=== PATIENT | female | born 1975 | race Caucasian/White ===

== ENCOUNTER 2018-01-28 10:00 | Emergency (ER) | payer OTHER ==
[~2018-01-28] VITALS: Ht 152.4 cm; Wt 79.4 kg
[~2018-01-28 10:00] MED LIST: BACTRIM DS TAB1 EACH PO; DOXYCYCLINE 10100 MG PO; NOHOMEMEDICATIONS; NORCO 5-325 TA1 EACH PO; PROVENTIL INH; VICODIN 5-5001 EACH PO; ZOFRAN4 MG PO; ZPAK PO
[2018-01-28 10:34] LABS: ABSOLUTE EOSINOPHILS 0.1 thou/uL (0.0-0.7); ABSOLUTE LYMPHOCYTES 0.8 thou/uL (0.8-5.3); ABSOLUTE MONOCYTES 0.3 thou/uL (0.0-1.2); ABSOLUTE NEUTROPHILS 3.1 thou/uL (1.6-8.1); BASOPHILS 0.8 %; EOSINOPHILS 2.6 %; HEMATOCRIT 42.5 % (37.0-47.0); HEMOGLOBIN 14.1 gm/dL (12.0-15.0); LYMPHOCYTES 18.7 %; MCH 32.7 pg (26.0-34.0); MCHC 33.3 g/dL (28.0-37.0); MCV 98.2 fL (80.0-100.0); MONOCYTES 6.7 %; NUCLEATED RBCS 0 /100WBC; PLATELET COUNT* 243 thou/uL (150-400); POLYS 71.2 %; RBC 4.32 mil/uL (4.20-5.00); RDW-CV 15.3 % (10.5-14.5); WBC 4.3 thou/uL (4.0-11.0)
[2018-01-28 10:39] LABS: CALCIUM 8.6 mg/dL (8.5-10.1); CREATININE 0.7 mg/dL (0.6-1.3); POTASSIUM 3.6 mmol/L (3.5-5.1)
[2018-01-28 10:47] LABS: MONOTEST (MONOSPOT)* NEGATIVE (Negative)
[2018-01-28 11:14] VITALS: BP 176/93
== END 2018-01-28 11:15 | disposition home or self-care (01) ==
LOC: M.ERS 10:00
PROVIDERS: Emergency Medicine Emergency Medical Services
DX: J02.9 Acute pharyngitis, unspecified (principal); R11.2 Nausea with vomiting, unspecified; F41.9 Anxiety disorder, unspecified; F32.9 Major depressive disorder, single episode, unspecified; F17.210 Nicotine dependence, cigarettes, uncomplicated; Z90.49 Acquired absence of other specified parts of digestive tract

== ENCOUNTER 2018-02-25 21:26 | Emergency (ER) | payer OTHER ==
[~2018-02-25] VITALS: Ht 154.9 cm; Wt 68.0 kg
[2018-02-25] MEDS ORDERED: CIPROFLOXIN HC2.5 M1 OPHTHALMIC (22:13)
[2018-02-25 22:19] VITALS: BP 154/92
== END 2018-02-25 22:19 | disposition home or self-care (01) ==
LOC: M.ERS 21:26
DX: H10.9 Unspecified conjunctivitis (principal); F32.9 Major depressive disorder, single episode, unspecified; F41.9 Anxiety disorder, unspecified; F17.210 Nicotine dependence, cigarettes, uncomplicated; Z90.49 Acquired absence of other specified parts of digestive tract; Z98.890 Other specified postprocedural states

== ENCOUNTER 2019-07-24 14:00 | Inpatient (IN) | payer OTHER ==
[~2019-07-24] VITALS: Ht 152.4 cm; Wt 79.4 kg
[~2019-07-24 14:00] MED LIST changes: +CIPROFLOXIN HC2.5 M1 OPHTHALMIC
[2019-07-24 14:15] VITALS: BP 144/90
[2019-07-24 14:53] LABS: ABSOLUTE EOSINOPHILS 0.1 thou/uL (0.0-0.7); ABSOLUTE MONOCYTES 0.5 thou/uL (0.0-1.2); ABSOLUTE NEUTROPHILS 4.2 thou/uL (1.6-8.1); BASOPHILS 0.4 %; EOSINOPHILS 1.6 %; HEMATOCRIT 40.6 % (37.0-47.0); HEMOGLOBIN 13.7 gm/dL (12.0-15.0); LYMPHOCYTES 17.3 %; MCH 32.8 pg (26.0-34.0); MCHC 33.8 g/dL (28.0-37.0); MCV 97.2 fL (80.0-100.0); MONOCYTES 8.6 %; MPV 6.7 fl. (7.2-11.1); NUCLEATED RBCS 0 /100WBC; PLATELET COUNT* 404 thou/uL (150-400); POLYS 72.1 %; RBC 4.17 mil/uL (4.20-5.00); RDW-CV 14.4 % (10.5-14.5); WBC 5.8 thou/uL (4.0-11.0)
[2019-07-24 14:55] LABS: CALCIUM 8.7 mg/dL (8.5-10.1); CREATININE 0.6 mg/dL (0.6-1.3); POTASSIUM 3.8 mmol/L (3.5-5.1)
[2019-07-24 15:56] LABS: ESR (SEDRATE) 23 mm/hr (0-20)
[2019-07-24 17:46] LABS: AMP/METHAMP Negative (Negative); BARBITURATES Negative (Negative); BENZODIAZEPINES Negative (Negative); COCAINE Negative (Negative); METHADONE Negative (Negative); OPIATES Negative (Negative); PCP Negative (Negative); THC POSITIVE (Negative)
[2019-07-24 20:10] VITALS: BP 125/70; BP 145/86
[2019-07-25 00:43] VITALS: BP 124/68
[2019-07-25 05:00] LABS: HEMATOCRIT 35.1 % (37.0-47.0); HEMOGLOBIN 11.9 gm/dL (12.0-15.0); MCH 32.7 pg (26.0-34.0); MCV 96.4 fL (80.0-100.0); MPV 6.7 fl. (7.2-11.1); RBC 3.64 mil/uL (4.20-5.00); RDW-CV 14.1 % (10.5-14.5); WBC 4.7 thou/uL (4.0-11.0)
[2019-07-25 05:12] LABS: ALBUMIN 2.7 g/dL (3.4-5.0); CALCIUM 8.1 mg/dL (8.5-10.1); CREATININE 0.5 mg/dL (0.6-1.3); MAGNESIUM 1.7 mg/dL (1.8-2.4); POTASSIUM 3.8 mmol/L (3.5-5.1)
--- NOTE | 2019-07-25 06:02 | NUR ---
RECEIVED REPORT FROM ER NURSE, SHERMAN. PATIENT BROUGHT TO UNIT AT 2009. ASSESSMENT COMPLETED CHARTED. PATIENT ORIENTED TO UNIT, ROOM, BED, CALL-LIGHT, AND HOSPITAL POLICY. PATIENT IS MED-SURG. FALL PRECAUTIONS IN PLACE FOR PATIENT SAFETY. HOURLY ROUNDING IN PLACE FOR PATIENT SAFETY. CLWR.
[2019-07-25 08:00] VITALS: BP 141/75
--- NOTE | 2019-07-25 11:26 | NUR ---
Nutrition: Pt admitted with FX, Lt leg celluilitis. Wt: 175#. Consult for poor intake. On ABX. Pt is currently NPO. Albumin 2.7. Hopeful for timely advancement of diet and good po intake with meals. May recommend protein supplement when diet advances for wound healing. No nutrition interventions needed today. Will follow for timely diet advancement and supplement. Mild risk. F/u 07/27/19.
--- NOTE | 2019-07-25 11:27 | NUR ---
WOUND NURSE: WITH THE ASSISTANCE OF DR. SOMERS, RESIDENT WITH DR. WOO, REMOVED ENOUGH SPLINT MATERIAL TO EXPOSE THE FRACTUE BLISTER ON THE MEDIAL ANKLE. APPLIED VERSATEL UNDER AQUACEL AG, THEN COTTON CAST PADDING WAS REAPPLIED AND SECURED WITH PIECE OF KERLEX, THEN THE JAYANT WRAPS WERE REPLACED. WOUND PRESENTS SHALLOW LESION, WITH LIGHT ZAFAR TISSUE ALONG WITH THIN BLACKENED ESCHAR COVERING ANTERIOR MOST PART OF THE WOUND BED, NO ACTIVE DRAINAGE IS NOTED. THERE IS SIGNIFICANT REDNESS AND WARMTH AND EDEMA TO THE PERIWOUND AREA NOTED. THIS WAS A ONE TIME DRESSING CHANGE WITH ORTHOPAEDIC DOCTORS TO FOLLOW UP. LLE WAS ELEVATED ON A FOLDED PILLOW FOR COMFORT AND EDEMA CONTROL. DRESSING CHANGE WAS TOLERATED WELL BY THE PATIENT WHO WAS PREMEDICATED BY HER NURSE.
--- NOTE | 2019-07-25 14:51 | NUR ---
Pt is A&O. Resides at home with her son, active and independent. Pt has crutches at home. No hx of HH or SNF. [place] at [place]. Following.
[2019-07-25 18:02] VITALS: BP 144/67
--- NOTE | 2019-07-25 18:39 | NUR ---
ASSESSMENT COMPLETED DOCUMENTED THIS MORNING. DR. ALMARAZ IN AND APPLIED SPLINT TO LEFT ANKLE AFTER 50MCG OF FENTANYL WAS ADMINISTERED. XRAY OBTAINED POST APPLICATION REVEALED LITTLE IMPROVEMENT. 1800 SPLINT WAS REAPPLIED BY DR. ALMARAZ AND DR. ARMAS AFTER 100 MCG OF FENTANYL WAS GIVEN. PATIENT HAS BEEN RESTING QUIETLY DURING THE DAY AND ONLY ASKED FOR PAIN MEDS X2. UP TO BSC WITH ASSISTANCE OF ONE AND WALKER FOR BALANCE. VSS.
[2019-07-25 20:00] VITALS: BP 151/76
[2019-07-25 23:57] VITALS: BP 152/90
[2019-07-26 04:54] LABS: ABSOLUTE EOSINOPHILS 0.1 thou/uL (0.0-0.7); ABSOLUTE LYMPHOCYTES 0.8 thou/uL (0.8-5.3); ABSOLUTE MONOCYTES 0.5 thou/uL (0.0-1.2); ABSOLUTE NEUTROPHILS 2.8 thou/uL (1.6-8.1); EOSINOPHILS 3.3 %; HEMATOCRIT 34.3 % (37.0-47.0); HEMOGLOBIN 11.7 gm/dL (12.0-15.0); MCH 32.9 pg (26.0-34.0); MCHC 34.1 g/dL (28.0-37.0); MCV 96.4 fL (80.0-100.0); MONOCYTES 12.3 %; MPV 6.4 fl. (7.2-11.1); NUCLEATED RBCS 0 /100WBC; PLATELET COUNT* 358 thou/uL (150-400); POLYS 64.4 %; RBC 3.56 mil/uL (4.20-5.00); RDW-CV 14.1 % (10.5-14.5); WBC 4.4 thou/uL (4.0-11.0)
[2019-07-26 05:25] LABS: ALBUMIN 2.8 g/dL (3.4-5.0); CREATININE 0.6 mg/dL (0.6-1.3); POTASSIUM 3.7 mmol/L (3.5-5.1)
--- NOTE | 2019-07-26 07:10 | NUR ---
CHANGE OF SHIFT BEDSIDE REPORT GIVEN PATIENT SEEN AT BEDSIDE, IN BED RESTING ASSUMED PATIENT CARE
--- NOTE | 2019-07-26 07:49 | NUR ---
Shift uneventful. Pt is aox4, M/S status, respirations are even and unlabored on room air. Pt is medically stable at this time.
[2019-07-26 08:00] VITALS: BP 124/51
--- NOTE | 2019-07-26 12:17 | NUR ---
Pt's sister has a wc and walker that Pt can use, no further needs identified. Pt discharging to home today.
[2019-07-26] MEDS ORDERED: ECPIRIN325 MG PO (13:17)
[2019-07-26] MEDS ORDERED: BACTRIM DS TAB1 EAC1 PO (13:19)
[2019-07-26] MEDS ORDERED: NORCO 5-325 TA1 EAC1 PO (13:20)
[2019-07-26 13:22] VITALS: BP 124/51
--- NOTE | 2019-07-26 13:28 | NUR ---
Per [facility], Pt does not qualify for [place] [facility]
--- NOTE | 2019-07-26 15:54 | NUR ---
PATIENT DISCHARGED TO HOME ALL DC INFORMATION GIVEN, ACKNOWLEDGED, PAPERWORK SIGNED IV REMOVED PATIENT ASSISTED OUT VIA WC GOOD CONDITION TO WAITING CAR
== END 2019-07-26 15:35 | disposition home or self-care (01) | DRG 563 ==
LOC: M.ERS 14:00 → M.TBA-ER 15:56 → M.2W 15:56
PROVIDERS: Internal Medicine; Physician Assistant; ADMIT Family Medicine
PROC: 2W3TX1Z Immobilization of Left Foot using Splint (ICD-10-PCS; principal; 2019-07-25)
DX: S82.852A Displaced trimalleolar fracture of left lower leg, initial encounter for closed fracture (principal); L03.116 Cellulitis of left lower limb; F41.9 Anxiety disorder, unspecified; F32.9 Major depressive disorder, single episode, unspecified; D47.3 Essential (hemorrhagic) thrombocythemia; R56.9 Unspecified convulsions; F17.210 Nicotine dependence, cigarettes, uncomplicated; F12.10 Cannabis abuse, uncomplicated; W10.8XXA Fall (on) (from) other stairs and steps, initial encounter; I10 Essential (primary) hypertension; Z83.3 Family history of diabetes mellitus; Z82.49 Family history of ischemic heart disease and other diseases of the circulatory system; Y93.89 Activity, other specified; Y92.89 Other specified places as the place of occurrence of the external cause; Y99.8 Other external cause status

== ENCOUNTER 2019-09-20 19:18 | Inpatient (IN) | payer OTHER ==
[~2019-09-20] VITALS: Ht 152.4 cm; Wt 82.6 kg
--- NOTE | ~2019-09-20 | OP ---
[address] [address] OPERATIVE REPORT Name: YOLA AMADOR Room: [address] IN [facility]#: [id number] Admission: 09/20/19 Attend Phys: Dianne Lewis Discharge: 09/24/19 Date of : 79 Report #: [id number] THIS REPORT FOR: //name// cc: NANI Amaya family physician/PCP NANI - Monique family physician/PCP ~ THIS REPORT FOR: //name// CC: NANI physician/PCP Gabe See DICTATED BY: Vin Bojorquez DO DATE OF SERVICE: 09/23/2019 PREOPERATIVE DIAGNOSIS: Left, closed, displaced trimalleolar ankle fracture, subacute. POSTOPERATIVE DIAGNOSIS: Left, closed, displaced trimalleolar ankle fracture, subacute. PROCEDURE PERFORMED: 1. Open reduction and internal fixation of left trimalleolar ankle fracture, distal fibula with cancellous allograft bone chips. 2. Open reduction and internal fixation of left medial malleolus. 3. Open reduction and internal fixation of left syndesmosis. 4. Physician directed fluoroscopy less than 1 hour. SURGEON: Stacey Barahona DO CLOTH BALE HEADER: Vin Bojorquez DO ANESTHESIA TYPE: General, local and regional nerve block by Anesthesia. ESTIMATED BLOOD LOSS: 10 mL. SPECIMENS REMOVED: None. COMPLICATIONS: None. CONDITION OF PATIENT: Stable. DISPOSITION: PACU, then Med/Surg. ANTIBIOTICS: 2 grams Ancef IV piggyback prior to the procedure. TOURNIQUET TIME: 77 minutes at [address] [place] [address] OPERATIVE REPORT Name: YOLA AMADOR Room: [address] IN [facility].#: [id number] Admission: 09/20/19 Attend Phys: Dianne Lewis Discharge: 09/24/19 Date of : 79 Report #: [id number] ORTHOPEDIC IMPLANTS: Arthrex distal fibular locking plate with appropriately sized screws, 3.5 mm cortical medial malleolar screws x 2 and 3.5 mm syndesmosis screws x 2. INDICATIONS FOR PROCEDURE: The patient is a 44-year-old female who unfortunately approximately 2-1/2 months ago sustained a left trimalleolar ankle fracture. She was initially hesitant to come into the Emergency Department due to the COVID-19 pandemic and had delayed presentation after a week or two from the time of injury. She then presented to the Emergency Department where closed reduction was performed and then she was followed up in Orthopedic Clinic. At that time due to lack of insurance and financial constraints, she was unable to undergo open reduction and internal fixation of her ankle fracture and the patient was then referred to [facility] for further care due to her lack of insurance. Unfortunately, she was unable to follow up with [facility] for this care and she was lost to follow up until she presented again to the Emergency Department with increasing pain earlier this week. At that point, she had repeat x-rays demonstrating a malunion of the ankle fracture with some interval healing as this is now a subacute injury. She underwent repeat closed reduction and was admitted to the hospital until she was stable for surgery today. Prior to surgery, the patient was informed of all the risks, benefits, indications and potential complications of the surgery including but not limited to infection, wound healing complications, neurovascular injury, need for extended antibiotics, implant failure, posttraumatic arthritis, especially in the setting of this being a subacute injury, DVT, PE and other thromboembolic events which she is particularly at risk since she does have a DVT noted in her peroneal vein. Also, a complication associated with anesthesia, need for revision surgery, chronic pain, and other possibilities. She demonstrated good understanding and wanted to proceed with surgery and consent was signed prior to surgery. DESCRIPTION OF PROCEDURE: I met with the patient in the preoperative suite and the correct left leg was marked. The patient was then taken to the operating room and positioned supine on a well-padded table. She was given general anesthetic. She was also given the benefit of a regional nerve block by Anesthesia. The left lower extremity was sterilely prepped and draped in standard fashion using a bone foam and a bump. At this point, a surgical timeout was completed, indicating the correct patient, operative site and procedure to be performed. All in the room were in agreement and we elected to proceed. Marked out both the medial and lateral incisions and the Esmarch was then utilized to exsanguinate the leg and the tourniquet was insufflated. The skin was incised with a 15 blade scalpel and then sharp dissection was taken down to the level of the fascia laterally. At this point, the fascia was incised and then further dissection was carried down to the level of bone. The periosteum was incised in line with the incision and a shahid elevator was used to perform periosteal sleeve dissection. The interval [place] [address] OPERATIVE REPORT Name: YOLA AMADOR Room: [address] IN [place].#: [id number] Admission: 09/20/19 Attend Phys: Dianne Lewis Discharge: 09/24/19 Date of : 79 Report #: [id number] was then removed and the fracture was completely freed until healthy appearing bone was visualized. Same technique was further utilized at the medial side with incising the skin with a 15 blade scalpel, dissection carried down to the level of the bone and periosteum was incised in line with the incision and a shahid elevator was utilized to free the periosteal sleeve both anterior and posterior and the fractured nonunion fibrous tissue was removed until healthy appearing fresh cartilage bone ends were visualized. At this point, proceeded with the reduction of the distal fibula. Multiplanar fluoroscopy was utilized to confirm adequate reduction with appropriate length of the distal fibula. The lateral distal fibular locking plate was positioned and the distal locking screws were drilled in place. Next, using a traction through the plate further length was able to be achieved and there was noted to be quite a bit of a fracture gap still present due to the amount of collapse she had sustained from the subacute injury and delayed time to surgery. In order to achieve adequate length of the distal fibula, we maintained this fracture gap present and the more proximal cortical screws were placed in an eccentric fashion, placing the screws essentially close to the fracture in order to obtain further length. Three cortical screws were then placed in the proximal aspect of the plate. At this point with the fibula well fixed, we then turned our attention to the medial malleolar fracture. This was reduced and 2 K-wires were positioned through the fracture piece engaging the posterior cortex. Multiplanar fluoroscopy was utilized in order to confirm appropriate position and then the appropriately sized cortical screws were able to be measured from these K wires. These were then drilled and the cortical screws were positioned in the standard fashion providing adequate reduction and fixation of the medial malleolus fracture. Next, we turned our attention to the syndesmosis. This was reduced in the standard technique with direct visualization and utilizing manual compression across the syndesmosis with the foot in neutral position. The two syndesmosis screws were drilled and placed with a quadricortical placement. At this point, the wounds were thoroughly irrigated both medially and laterally. Cancellous allograft bone chips were passed on the back table and these were then allowed to soak in saline. They were crushed in order to fill the distal fibula fracture gap that was still present. We were able to adequately impact all of the allograft cancellous chips into this fracture gap. Closure consisted of closing the deep layer with 0 Vicryl in a [id number] fashion. Subcutaneous closure both medially and laterally was performed with a 3-0 Vicryl in an inverted simple fashion. Skin was closed with 3-0 nylon in a running fashion, both medially and laterally. The needle and sponge counts were correct x 2 at the end of procedure. The dressing consisted of Arthrex soft tissue dressing followed by 4 x 4's, ABD, soft roll, posterior splint and Armani wrap. Tourniquet was deflated. The patient was awakened from anesthesia and taken to PACU in stable condition. Dr. Barahona was present throughout the entirety of the case. POSTOPERATIVE COURSE: The patient will [place] [address] OPERATIVE REPORT Name: YOLA AMADOR Room: [address] IN [facility].#: [id number] Admission: 09/20/19 Attend Phys: Dianne Lewis Discharge: 09/24/19 Date of : 79 Report #: [id number] extremity. She will be evaluated by physical therapy to pass gait training. We will initiate Eliquis for further DVT treatment of the peroneal vein DVT, which will be managed by the Internal Medicine colleagues. Follow up in orthopedic clinic in 1 week for reevaluation and wound check. By: [id number] Barahona DO /cristian
[~2019-09-20 19:18] MED LIST changes: +BACTRIM DS TAB1 EAC1 PO; +ECPIRIN325 MG PO; +NORCO 5-325 TA1 EAC1 PO
[2019-09-20 19:28] VITALS: BP 182/79
[2019-09-20 21:28] LABS: ABSOLUTE EOSINOPHILS 0.3 thou/uL (0.0-0.7); ABSOLUTE LYMPHOCYTES 1.4 thou/uL (0.8-5.3); ABSOLUTE MONOCYTES 0.4 thou/uL (0.0-1.2); ABSOLUTE NEUTROPHILS 3.1 thou/uL (1.6-8.1); BASOPHILS 0.6 %; EOSINOPHILS 4.8 %; HEMATOCRIT 41.3 % (37.0-47.0); LYMPHOCYTES 27.2 %; MCH 32.5 pg (26.0-34.0); MCHC 33.8 g/dL (28.0-37.0); MCV 96.1 fL (80.0-100.0); MONOCYTES 8.2 %; MPV 6.8 fl. (7.2-11.1); NUCLEATED RBCS 0 /100WBC; PLATELET COUNT* 314 thou/uL (150-400); POLYS 59.2 %; RDW-CV 15.5 % (10.5-14.5); WBC 5.2 thou/uL (4.0-11.0)
[2019-09-20 21:37] LABS: CALCIUM 8.5 mg/dL (8.5-10.1); CREATININE 0.6 mg/dL (0.6-1.3); POTASSIUM 3.4 mmol/L (3.5-5.1)
[2019-09-20 21:41] LABS: ALBUMIN 3.6 g/dL (3.4-5.0); TOTAL BILIRUBIN 0.4 mg/dL (<0.1-1.0); TOTAL PROTEIN 7.6 g/dL (6.4-8.2)
[2019-09-20 23:31] VITALS: BP 149/72
[2019-09-20 23:45] VITALS: BP 150/83
[2019-09-21 04:00] VITALS: BP 151/78
[2019-09-21 08:11] VITALS: BP 159/97
[2019-09-21 11:07] LABS: APTT 28.1 Seconds (25.0-31.3)
[2019-09-21 11:38] LABS: ABSOLUTE EOSINOPHILS 0.2 thou/uL (0.0-0.7); ABSOLUTE LYMPHOCYTES 1.1 thou/uL (0.8-5.3); ABSOLUTE MONOCYTES 0.4 thou/uL (0.0-1.2); ABSOLUTE NEUTROPHILS 2.2 thou/uL (1.6-8.1); EOSINOPHILS 5.7 %; HEMATOCRIT 39.4 % (37.0-47.0); HEMOGLOBIN 13.2 gm/dL (12.0-15.0); LYMPHOCYTES 28.2 %; MCH 32.3 pg (26.0-34.0); MCHC 33.6 g/dL (28.0-37.0); MCV 96.2 fL (80.0-100.0); MONOCYTES 9.5 %; MPV 7.2 fl. (7.2-11.1); NUCLEATED RBCS 0 /100WBC; PLATELET COUNT* 282 thou/uL (150-400); POLYS 55.6 %; RDW-CV 15.7 % (10.5-14.5); WBC 3.9 thou/uL (4.0-11.0)
[2019-09-21 14:30] VITALS: BP 145/71
[2019-09-21 20:00] VITALS: BP 156/87
[2019-09-22] VITALS: BP 126/57
[2019-09-22 04:00] VITALS: BP 171/80
[2019-09-22 08:29] VITALS: BP 149/85
[2019-09-22 12:16] VITALS: BP 148/92
[2019-09-22 12:18] LABS: URINE BILIRUBIN NEGATIVE (Negative); URINE BLOOD NEGATIVE (Negative); URINE CLARITY CLEAR; URINE COLOR YELLOW; URINE GLUCOSE-RANDOM NEGATIVE (Negative); URINE KETONES NEGATIVE (Negative); URINE LEUKOCYTES-REFLEX NEGATIVE (Negative); URINE NITRITE-REFLEX NEGATIVE (Negative); URINE PROTEIN NEGATIVE (Negative); URINE UROBILINOGEN 0.2 E.U./dl (0.2-1.0)
[2019-09-22 12:29] LABS: AMP/METHAMP Negative (Negative); BARBITURATES Negative (Negative); BENZODIAZEPINES Negative (Negative); COCAINE Negative (Negative); METHADONE Negative (Negative); OPIATES POSITIVE (Negative); PCP Negative (Negative); THC POSITIVE (Negative)
[2019-09-22 13:02] LABS: CREATININE 0.9 mg/dL (0.6-1.3); MAGNESIUM 1.8 mg/dL (1.8-2.4); POTASSIUM 3.8 mmol/L (3.5-5.1)
[2019-09-22 17:20] VITALS: BP 130/84
[2019-09-22 20:09] VITALS: BP 148/86
[2019-09-23] VITALS (9 sets, daily range): BP systolic 129–164; BP diastolic 63–89
[2019-09-23] MEDS ORDERED: XARELTO15 MG PO (10:11)
[2019-09-23] MEDS ORDERED: XARELTO20 MG PO (10:11)
[2019-09-24 04:00] VITALS: BP 130/65
[2019-09-24 05:00] LABS: HEMATOCRIT 37.8 % (37.0-47.0); HEMOGLOBIN 12.5 gm/dL (12.0-15.0); MCH 31.8 pg (26.0-34.0); MCHC 33.2 g/dL (28.0-37.0); MCV 95.9 fL (80.0-100.0); MPV 6.8 fl. (7.2-11.1); NUCLEATED RBCS 0 /100WBC; PLATELET COUNT* 284 thou/uL (150-400); RBC 3.94 mil/uL (4.20-5.00); RDW-CV 15.3 % (10.5-14.5); WBC 11.1 thou/uL (4.0-11.0)
[2019-09-24 06:20] LABS: ABSOLUTE LYMPHOCYTES 1.1 thou/uL (0.8-5.3); PLATELET ESTIMATE ADEQUATE
[2019-09-24 08:00] VITALS: BP 140/68
[2019-09-24] MEDS ORDERED: ADVIL200 M3 PO (09:26)
[2019-09-24] MEDS ORDERED: ELIQUIS5 MG PO (09:26)
[2019-09-24 10:48] VITALS: BP 140/68
[2019-09-24] MEDS ORDERED: PERCOCET 5-3251 EACH PO (10:58)
[2019-09-24 11:30] VITALS: BP 142/83
== END 2019-09-24 14:05 | disposition home or self-care (01) | DRG 493 ==
LOC: M.ERS 19:18 → M.TBA-ER 21:11 → M.3W 21:11 → M.2W 09-21 14:43
PROVIDERS: Emergency Medicine; ADMIT Internal Medicine
PROC: 0QSK04Z Reposition Left Fibula with Internal Fixation Device, Open Approach (ICD-10-PCS; principal; 2019-09-23)
PROC: 0QSH04Z Reposition Left Tibia with Internal Fixation Device, Open Approach (ICD-10-PCS; principal; 2019-09-23)
PROC: 0QSP04Z Reposition Left Metatarsal with Internal Fixation Device, Open Approach (ICD-10-PCS; principal; 2019-09-23)
PROC: 0QUK0KZ Supplement Left Fibula with Nonautologous Tissue Substitute, Open Approach (ICD-10-PCS; principal; 2019-09-23)
PROC: 3E0T3BZ Introduction of Anesthetic Agent into Peripheral Nerves and Plexi, Percutaneous Approach (ICD-10-PCS; principal; 2019-09-23)
DX: S82.852A Displaced trimalleolar fracture of left lower leg, initial encounter for closed fracture (principal); I82.452 Acute embolism and thrombosis of left peroneal vein; F17.210 Nicotine dependence, cigarettes, uncomplicated; F32.9 Major depressive disorder, single episode, unspecified; E87.6 Hypokalemia; E66.9 Obesity, unspecified; F19.10 Other psychoactive substance abuse, uncomplicated; F41.9 Anxiety disorder, unspecified; W19.XXXA Unspecified fall, initial encounter; Z98.891 History of uterine scar from previous surgery; Z90.49 Acquired absence of other specified parts of digestive tract; Z79.899 Other long term (current) drug therapy; Y93.89 Activity, other specified; Y92.89 Other specified places as the place of occurrence of the external cause; Y99.8 Other external cause status; Z68.35 Body mass index [BMI] 35.0-35.9, adult

== ENCOUNTER 2020-02-02 20:53 | Emergency (ER) | payer OTHER ==
[~2020-02-02] VITALS: Ht 154.9 cm; Wt 77.1 kg
[~2020-02-02 20:53] MED LIST changes: +ADVIL200 M3 PO; +ELIQUIS5 MG PO; +PERCOCET 5-3251 EACH PO; +XARELTO15 MG PO; +XARELTO20 MG PO
[2020-02-02] MEDS ORDERED: CALCIUM 500 +1 EACH PO (21:12)
[2020-02-02] MEDS ORDERED: ASA81BEC PO (21:12)
[2020-02-03] MEDS ORDERED: MELOXICAM15 MG PO (01:37)
[2020-02-03] MEDS ORDERED: HYDROCODON-ACE1 EAC7 PO (01:37)
[2020-02-03 01:39] VITALS: BP 136/60
== END 2020-02-03 01:40 | disposition home or self-care (01) ==
LOC: M.ERS 20:53
DX: M25.571 Pain in right ankle and joints of right foot (principal); R60.0 Localized edema; Z98.51 Tubal ligation status; Z79.899 Other long term (current) drug therapy; Z90.49 Acquired absence of other specified parts of digestive tract